=== PATIENT | female | born 1990 | race Caucasian/White ===

== ENCOUNTER 2016-12-07 10:46 | Emergency (ER) | payer OTHER ==
[~2016-12-07] VITALS: Ht 160 cm; Wt 44.5 kg
[~2016-12-07 10:46] MED LIST: CEPH-264 PO; CEPH500C PO; CYCL10TA2 PO; HYDR-971 PO; IBUP-1027 PO; IBUP-1060 PO; METR500T4 PO; NAPR250T2 PO; PHEN-318 PO
[2016-12-07 10:57] VITALS: BP 139/95
[2016-12-07] MEDS ORDERED: HYDR-971 PO (11:54)
[2016-12-07] MEDS ORDERED: CLIN-44 PO (11:54)
--- NOTE | 2016-12-07 11:55 | PHYS DOC ---
Past Medical History Past Medical History: No Pertinent History, Anxiety Past Surgical History: Tonsillectomy Additional Information: LESS THAN 1/2 PACK PER DAY Alcohol Use: None Drug Use: None Adult General Chief Complaint Chief Complaint: DENTAL PROBLEM HPI HPI Patient is a 25 year old female presents emergency department stating that she has having right upper dental pain and discomfort for the last 4 days. She states that she is also been having a nausea feeling. She denies fever, chills. Patient denies any foul taste in the mouth from the dental pain. Patient has been using Orajel and Tylenol [id number] without relief. Patient states she is going to try to follow up at the dental school although she does not have a dentist. Review of Systems Review of Systems Constitutional: Denies fever or chills [] Eyes: Denies change in visual acuity, redness, or eye pain [] HENT: Denies nasal congestion or sore throat. C/o dental pain Respiratory: Denies cough or shortness of breath [] Cardiovascular: No additional information not addressed in HPI [] GI: Denies abdominal pain, vomiting, bloody stools or diarrhea. C/o nausea : Denies dysuria or hematuria [] Musculoskeletal: Denies back pain or joint pain [] Integument: Denies rash or skin lesions [] Neurologic: Denies headache, focal weakness or sensory changes [] Allergies Allergies Allergies Coded Allergies Type Severity Reaction Last Updated Verified Penicillins Allergy Intermediate 11/07/16 Yes amoxicillin Allergy Intermediate 06/07/15 Yes venom-honey bee Allergy Intermediate Shortness of Air 12/11/15 Yes Physical Exam Physical Exam Constitutional: Well developed, well nourished, no acute distress, non-toxic appearance. [] HENT: Normocephalic, atraumatic, bilateral external ears normal, oropharynx moist, no oral exudates, nose normal. Bilateral tympanic membranes appear to be normal. Throat with no erythematous or drainage or discharge. Patient was noted to have erythematous over the #3 through 5 tooth. No drainage or discharge noted. Eyes: PERRLA, EOMI, conjunctiva normal, no discharge. [] Neck: Normal range of motion, no tenderness, supple, no stridor. [] Cardiovascular:Heart rate regular rhythm, no murmur [] Lungs & Thorax: Bilateral breath sounds clear to auscultation [] Skin: Warm, dry, no erythema, no rash. [] Back: No tenderness, Extremities: No tenderness, no cyanosis, no clubbing, ROM intact, no edema. [] Neurologic: Alert and oriented X 3, normal motor function, normal sensory function, no focal deficits noted. [] Psychologic: Affect normal, judgement normal, mood normal. [] Current Patient Data Vital Signs Vital Signs Date Time Temp Pulse Resp B/P Pulse Ox O2 Delivery O2 Flow Rate FiO2 12/07/16 10:57 98.2 95 18 99 Room Air 98.2 EKG EKG [] Radiology/Procedures Radiology/Procedures [] Course & Med Decision Making Course & Med Decision Making Pertinent Labs and Imaging studies reviewed. (See chart for details) Patient will be placed on clindamycin and will be provided hydrocodone. Also recommended ibuprofen every 8 hours 800 mg with food. Patient was also instructed to stop taking the medication if it should develop upset stomach. She was also instructed hydrocodone will cause drowsiness do not take any be alert and oriented. Patient agrees with discharge instructions, treatment regimens and follow-up recommendations. Signs and symptoms to return back to emergency department as been provided.\ Dragon Disclaimer Dragon Disclaimer This electronic medical record was generated, in whole or in part, using a voice recognition dictation system. Departure Departure Impression: Primary Impression: Pain, dental Additional Impression: Dental abscess Disposition: 01 HOME, SELF-CARE Condition: STABLE Referrals: NO PCP (PCP) Patient Instructions: Dental Abscess, Dental Pain, [id number] Additional Instructions: Activity as tolerated. Ibuprofen 800 mg every 8 hours. Hydrocodone will cause drowsiness do not take any be alert and oriented. Medications as prescribed. Follow-up with a dentist in the next 7-10 days. Return back to emergency prior signs and symptoms of become worse. Scripts Hydrocodone/Apap 5-325 ([place] 5-325 Tablet)1 Each Tablet1 Tab PO PRN Q6HRS PRN PAIN #6 TAB Prov:WILLY HAYES NP 12/07/16 Clindamycin Hcl 150 Mg Capsule3 Cap PO QID 10 Days Prov:WILLY HAYES NP 12/07/16 Problem Qualifiers WILLY HAYES NP Dec 07, 2016 11:55
== END 2016-12-07 12:01 | disposition home or self-care (01) ==
LOC: ER 10:46
DX: K04.7 Periapical abscess without sinus (principal); F17.200 Nicotine dependence, unspecified, uncomplicated; Z88.0 Allergy status to penicillin; Z88.1 Allergy status to other antibiotic agents; Z91.030 Bee allergy status
CPT/HCPCS: 99283

== ENCOUNTER 2017-02-11 19:57 | Emergency (ER) | payer OTHER ==
[~2017-02-11 19:57] MED LIST changes: +CLIN-44 PO
[2017-02-11] MEDS ORDERED: FENTANYL PF 100 MCG/2 ML VIAL. IV ONE (20:30)
[2017-02-11] MEDS ORDERED: OXYCODONE/APAP 5/325 TABLET. PO ONE (21:15)
--- NOTE | 2017-02-11 21:37 | PHYS DOC ---
Past Medical History Past Medical History: Anxiety Past Surgical History: Tonsillectomy Alcohol Use: None Drug Use: None Adult General Chief Complaint Chief Complaint: SHOULDER INJURY HPI HPI Patient is a 26 year old female who presents s/p fall. Patient reports that she has sciatic pain that caused her legs to give out as she was walking down some steps; she then fell, falling down several steps and landing on her R shoulder and R elbow. Did not hit head, no LOC. Patient presents now with c/o pain radiating from her R neck down her RUE. She says her RUE is numb. She took half a hydrocodone and an aleve prior to coming to ED. No numbness or weakness in LUE or either lower extremity. Review of Systems Review of Systems Constitutional: Denies fever or chills Eyes: Denies change in visual acuity or eye pain HENT: Denies nasal congestion or sore throat Respiratory: Denies cough or shortness of breath Cardiovascular: Denies chest pain GI: Denies abdominal pain, nausea, vomiting, bloody stools or diarrhea : Denies dysuria or hematuria Musculoskeletal: R neck pain, RUE pain Integument: Denies rash or skin lesions Neurologic: Denies headache, focal weakness Current Medications Current Medications Current Medications Medications (Trade) Dose Ordered Sig/Randi Start Time Stop Time Status Last Admin Dose Admin Fentanyl Citrate (Fentanyl 2ml Vial) 50 mcg 1X ONCE 02/11/17 20:30 02/11/17 20:37 DC 02/11/17 20:53 50 MCG Oxycodone/ Acetaminophen (Percocet 5/325) 2 tab 1X ONCE 02/11/17 21:15 02/11/17 21:16 DC 02/11/17 21:16 2 TAB Allergies Allergies Allergies Coded Allergies Type Severity Reaction Last Updated Verified Penicillins Allergy Intermediate 11/07/16 Yes amoxicillin Allergy Intermediate 06/07/15 Yes venom-honey bee Allergy Intermediate Shortness of Air 12/11/15 Yes Physical Exam Physical Exam Constitutional: Well developed, well nourished, non-toxic appearance HENT: Normocephalic, atraumatic, bilateral external ears normal Eyes: EOMI, conjunctiva normal, no discharge Neck: No stridor; posterior neck generally TTP, no stepoff or deformity noted Cardiovascular: Heart rate normal, regular rhythm, no murmur Lungs & Thorax: Bilateral breath sounds clear to auscultation Abdomen: Bowel sounds normal, soft, non-distended, no TTP Skin: Warm, dry, no erythema, no rash Back: No midline tenderness, no stepoff or deformity Extremities: RUE visually unremarkable compared to LUE, no bruising or other skin lesion noted; general significant TTP over any part of RUE, from shoulder to wrist; patient reports RUE numb to light touch; motor function appears intact but limited by pain; 2+ radial pulse, brisk cap refill in fingers Neurologic: Alert and oriented X 3, no gross deficits noted Current Patient Data Vital Signs Vital Signs Date Time Temp Pulse Resp B/P Pulse Ox O2 Delivery O2 Flow Rate FiO2 02/11/17 22:00 89 17 122/74 100 02/11/17 21:16 Room Air 02/11/17 20:01 98.1 98.1 Lab Values Laboratory Tests Test 02/11/17 19:48 POC Urine HCG, Qualitative Hcg negative (Negative) EKG EKG [] Radiology/Procedures Radiology/Procedures X-ray R shoulder (my read): No acute abnormality X-ray R elbow (my read): No acute abnormality X-ray R wrist (my read): No acute abnormality CT C-spine: IMPRESSION Negative for fracture or dislocation in the cervical spine. Course & Med Decision Making Course & Med Decision Making Pertinent Labs and Imaging studies reviewed. (See chart for details) Patient is 26 year old female who presents s/p mechanical fall. No obvious significant injury on exam, although question the possibility of rotator cuff injury or pinched nerve. Will obtain x-rays of RUE as well as CT c-spine. Pain meds ordered for pain relief. Imaging results as above, no serious injury appreciated. Discussed results with patient, who is more comfortable at this time. Will place RUE in sling. Will discharge with rx for short course of pain meds, NSAID, muscle relaxant, instructions to follow up with ortho if persistent difficulty moving R arm. Given return precautions. Dragon Disclaimer Dragon Disclaimer This electronic medical record was generated, in whole or in part, using a voice recognition dictation system. Departure Departure Impression: Primary Impression: Fall Additional Impression: Musculoskeletal pain of right upper extremity Disposition: HOME, SELF-CARE Condition: IMPROVED Referrals: NO PCP (PCP) THEE MCDERMOTT MD Patient Instructions: Fall Prevention and Home Safety Additional Instructions: Thank you for allowing us to provide care today in the Emergency Department. Take the provided medication as directed. Use care when taking the pain medication or muscle relaxant as they may make you drowsy. Schedule a follow up appointment with an orthopedist using the provided contact information if you continue to have problems moving your shoulder after a couple days. Return promptly to the Emergency Department if you develop any new or concerning symptoms. Scripts Cyclobenzaprine Hcl 10 Mg [id number] Mg PO TID PRN MUSCLE SPASMS #15 TAB Prov:PERRI LINCOLN MD 02/11/17 Naproxen 375 Mg [id number] Mg PO BID PRN PAIN #20 Prov:PERRI LINCOLN MD 02/11/17 Hydrocodone/Apap 5-325 ([place] 5-325 Tablet)1 Each Tablet1 Tab PO PRN Q6HRS PRN PAIN #8 TAB Prov:PERRI LINCOLN MD 02/11/17 Problem Qualifiers PERRI LINCOLN MD Feb 11, 2017 21:37
--- NOTE | 2017-02-11 21:56 | RAD ---
PROCEDURE CT cervical spine without contrast. HISTORY Neck pain after fall. TECHNIQUE Axial images and coronal and sagittal re-formatted images are provided. One or more of the following individualized dose reduction techniques were utilized for this exam: 1. Automated exposure control. 2. Adjustment of the mA and/or kV according to patient's size. 3. Use of iterative reconstruction technique. COMPARISON None. FINDINGS There is no fracture or dislocation. Prevertebral soft tissues are within normal limits. Craniovertebral junction is unremarkable. There is no definite canal or foraminal compromise. Lung apices are clear. IMPRESSION Negative for fracture or dislocation in the cervical spine. Electronically signed by: Jovany Dover MD (Feb 11, 2017 21:54:53)
[2017-02-11 22:00] VITALS: BP 122/74
[2017-02-11] MEDS ORDERED: CYCL10TA2 PO (22:17)
[2017-02-11] MEDS ORDERED: HYDR-971 PO (22:17)
[2017-02-11] MEDS ORDERED: NAPR375T3 PO (22:17)
--- NOTE | 2017-02-12 07:40 | RAD ---
Indication fall, pain. AP oblique and lateral views of the right wrist were obtained. No bony abnormality is seen
--- NOTE | 2017-02-12 07:42 | RAD ---
Indication fall, pain. AP oblique and lateral images of the right elbow were obtained. All of the images obtained are compromised. Positioning of the elbow is not optimal. A definite acute finding is not seen on the views submitted. IMPRESSION: Limited study. No definite acute bony finding seen
--- NOTE | 2017-02-12 07:51 | RAD ---
Indication fall, pain. AP and Y views of the right shoulder were obtained. No bony abnormality is seen
== END 2017-02-11 22:42 | disposition home or self-care (01) ==
LOC: ER 19:57
DX: M79.604 Pain in right leg (principal); M54.2 Cervicalgia; M79.1 Myalgia; F41.9 Anxiety disorder, unspecified; Z88.0 Allergy status to penicillin; Z91.030 Bee allergy status; Z88.1 Allergy status to other antibiotic agents; W10.9XXA Fall (on) (from) unspecified stairs and steps, initial encounter; Y93.89 Activity, other specified; Y92.89 Other specified places as the place of occurrence of the external cause; Y99.8 Other external cause status
CPT/HCPCS: 72125; 73030; 73080; 73110; 81025; 96374; 99284; J3010

== ENCOUNTER 2017-08-03 11:12 | Emergency (ER) | payer OTHER ==
[~2017-08-03] VITALS: Ht 160 cm; Wt 59.0 kg
[~2017-08-03 11:12] MED LIST changes: -CLIN-44 PO; +CLIN150C14 PO; -METR500T4 PO; +METR500T8 PO; +NAPR-695 PO; -NAPR250T2 PO; +NAPR250T6 PO
[2017-08-03 11:35] VITALS: BP 117/57
[2017-08-03] MEDS ORDERED: lidoderm patch 5% TOP (12:24)
[2017-08-03] MEDS ORDERED: LIDOCAINE (700MG/PATCH) PATCH. TD ONE (12:30)
--- NOTE | 2017-08-03 12:32 | PHYS DOC ---
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 She reports that she has pain in her chest when she coughs or takes a deep breath. She's not attempted any symptom controlling medication, denies fevers. Reports runny nose. After coughing she developed some right lower back pain. She denies dysuria or increased urinary frequency. She is 7 months , she denies any abdominal pain, vaginal bleeding or discharge. Nose sensory change, no bowel or bladder incontinence or retention .Patient reports she sees Dr. Keith Review of Systems Review of Systems Constitutional: Denies fever or chills [] Eyes: Denies change in visual acuity, redness, or eye pain [] HENT: Denies nasal congestion or sore throat [] Respiratory: Denies shortness of breath [] Cardiovascular: per hpi GI: Denies abdominal pain, nausea, vomiting, bloody stools or diarrhea [] : Denies dysuria or hematuria [] Musculoskeletal: Denies joint pain [] Integument: Denies rash or skin lesions [] Neurologic: Denies headache, focal weakness or sensory changes [] Current Medications Current Medications Current Medications Medications (Trade) Dose Ordered Sig/Randi Start Time Stop Time Status Last Admin Dose Admin Lidocaine (Lidoderm) 1 patch 1X ONCE 08/03/17 12:30 08/03/17 12:31 DC 08/03/17 12:39 1 PATCH Allergies Allergies Allergies Coded Allergies Type Severity Reaction Last Updated Verified Penicillins Allergy Intermediate 11/07/16 Yes amoxicillin Allergy Intermediate 06/07/15 Yes venom-honey bee Allergy Intermediate Shortness of Air 12/11/15 Yes Physical Exam Physical Exam Constitutional: Well developed, well nourished, no acute distress, appears to not feel well HENT: Normocephalic, atraumatic, bilateral external ears normal, oropharynx moist, no oral exudates, nose normal. [] Eyes: PERRLA, EOMI, conjunctiva normal, no discharge. [] Neck: Normal range of motion, no tenderness, supple, no stridor. [] Cardiovascular:Heart rate regular at 100 with regular rhythm, no murmur [] Lungs & Thorax: Bilateral breath sounds clear to auscultation, good air movement, no wheeze or crackles Abdomen: Bowel sounds normal, soft, no tenderness, no masses, no pulsatile masses, gravid above umbilicus Skin: Warm, dry, no erythema, no rash. [] Back: No midline ttp, no stepoffs, TTP along R flank with palpation and pain with twisting Extremities: No tenderness, no cyanosis, no clubbing, ROM intact, no edema. [] Neurologic: Alert and oriented X 3, normal motor function, normal sensory function, no focal deficits noted. [] Psychologic: Affect normal, judgement normal, mood normal. [] Current Patient Data Vital Signs Vital Signs Date Time Temp Pulse Resp B/P (MAP) Pulse Ox O2 Delivery O2 Flow Rate FiO2 08/03/17 11:35 98.2 94 18 117/57 (77) 99 Room Air 98.2 EKG EKG [] Radiology/Procedures Radiology/Procedures [] Course & Med Decision Making Course & Med Decision Making Pertinent Labs and Imaging studies reviewed. (See chart for details) Patient satting 100% on room air, she has good air movement on exam, she has no comp medications with the . No dysuria or signs of UTI. Her back pain seems to be related to her coughing. Recommended that the patient take Tylenol for pain, honey for the cough, Lidoderm patch was ordered for her back as well as prescription given. Patient was given strict return cautions and instructed to follow-up with primary care physician. She was agreeable to the plan. Dragon Disclaimer Dragon Disclaimer This electronic medical record was generated, in whole or in part, using a voice recognition dictation system. Departure Departure Impression: Primary Impression: Upper respiratory infection Disposition: 01 HOME, SELF-CARE Condition: STABLE Referrals: RAE KEITH Jr, MD Please follow up with her primary care physician to ensure your symptoms are well controlled. You may take Tylenol for your pain, honey for your cough. Return if you have worsening symptoms. Patient Instructions: Back Pain in , Upper Respiratory Infection, Adult Scripts [lidoderm patch 5%] No Conflict Check 1 PATCH TOP PRN Q12HR Y for PAIN, #5 PATCH apply to affected area for 12 hours, then remove for 12 hours. Prov: MISSAEL VARELA MD 08/03/17 MISSAEL VARELA MD Aug 03, 2017 12:32
== END 2017-08-03 12:41 | disposition home or self-care (01) ==
LOC: ER 11:12
DX: J06.9 Acute upper respiratory infection, unspecified (principal); Z88.0 Allergy status to penicillin; Z88.1 Allergy status to other antibiotic agents; Z91.030 Bee allergy status; Z90.89 Acquired absence of other organs
CPT/HCPCS: 99282

== ENCOUNTER 2017-08-17 14:35 | Observation (INO) | payer OTHER ==
[~2017-08-17 14:35] MED LIST changes: +lidoderm patch 5% TOP
[2017-08-17 15:39] LABS: BILIRUBIN,URINE NEGATIVE (NEG); GLUCOSE,URINE NEGATIVE (NEG); NITRITE,URINE NEGATIVE (NEG); PH,URINE 7.5; PROTEIN,URINE NEGATIVE (NEG-TRACE); UROBILINOGEN,URINE 0.2 mg/dL (0.2 mg/dL)
[2017-08-17 15:42] LABS: BARBITURATES NEG (NEG); BENZODIAZEPINES NEG (NEG); CANNABINOIDS POS (NEG); COCAINE NEG (NEG); METHADONE NEG (NEG); OPIATES NEG (NEG); PHENCYCLIDINE NEG (NEG)
== END 2017-08-17 16:05 | disposition home or self-care (01) ==
LOC: 3 SO LND 14:35
PROVIDERS: ADMIT Obstetrics & Gynecology; ATTEND Obstetrics & Gynecology
DX: O36.8130 Decreased fetal movements, third trimester, not applicable or unspecified (principal); O47.03 False labor before 37 completed weeks of gestation, third trimester; Z3A.33 33 weeks gestation of pregnancy
CPT/HCPCS: 80307; 81003; G0378; G0379; 59025; G0479

== ENCOUNTER 2017-08-23 22:22 | Observation (INO) | payer OTHER ==
[2017-08-23 23:37] LABS: BILIRUBIN,URINE NEGATIVE (NEG); GLUCOSE,URINE NEGATIVE (NEG); NITRITE,URINE NEGATIVE (NEG); PROTEIN,URINE NEGATIVE (NEG-TRACE); UROBILINOGEN,URINE 0.2 mg/dL (0.2 mg/dL)
[2017-08-23 23:43] LABS: BACTERIA,URINE MANY /HPF (0-FEW); RBC,URINE 0 /HPF (0-2)
[2017-08-23 23:44] LABS: SQUAMOUS EPITHELIAL CELL,UR MOD /LPF
[2017-08-23 23:45] LABS: BARBITURATES NEG (NEG); BENZODIAZEPINES NEG (NEG); CANNABINOIDS POS (NEG); COCAINE NEG (NEG); METHADONE NEG (NEG); OPIATES NEG (NEG); PHENCYCLIDINE NEG (NEG)
== END 2017-08-24 00:37 | disposition home or self-care (01) ==
LOC: 3 SO LND 22:22
PROVIDERS: ADMIT Obstetrics & Gynecology; ATTEND Obstetrics & Gynecology
DX: O26.893 Other specified pregnancy related conditions, third trimester (principal); M54.5 Low back pain; R10.9 Unspecified abdominal pain; Z3A.34 34 weeks gestation of pregnancy
CPT/HCPCS: 80307; 81001; 87086; G0378; G0379; G0479

== ENCOUNTER 2017-09-17 13:04 | Observation (INO) | payer OTHER ==
[2017-09-17] MEDS ORDERED: IV RINGERS,LACTATED 1000ML 1,000 ML IV SCH (13:38)
[2017-09-17 13:50] LABS: BILIRUBIN,URINE NEGATIVE (NEG); GLUCOSE,URINE NEGATIVE (NEG); NITRITE,URINE NEGATIVE (NEG); PH,URINE 7.5; PROTEIN,URINE NEGATIVE (NEG-TRACE); UROBILINOGEN,URINE 0.2 mg/dL (0.2 mg/dL)
[2017-09-17 13:58] LABS: BARBITURATES NEG (NEG); BENZODIAZEPINES NEG (NEG); CANNABINOIDS NEG (NEG); COCAINE NEG (NEG); METHADONE NEG (NEG); OPIATES NEG (NEG); PHENCYCLIDINE NEG (NEG)
[2017-09-17 13:59] LABS: BACTERIA,URINE MODERATE /HPF (0-FEW); RBC,URINE OCC /HPF (0-2); SQUAMOUS EPITHELIAL CELL,UR MANY /LPF
== END 2017-09-17 16:19 | disposition home or self-care (01) ==
LOC: 3 SO LND 13:04
PROVIDERS: ADMIT Obstetrics & Gynecology; ATTEND Obstetrics & Gynecology
DX: O62.9 Abnormality of forces of labor, unspecified (principal); Z3A.38 38 weeks gestation of pregnancy
CPT/HCPCS: 80307; 81001; 87086; G0378; G0379; G0479

== ENCOUNTER 2017-12-30 10:46 | Emergency (ER) | payer OTHER ==
[2017-12-30 11:01] LABS: URINE HCG POC HCG NEGATIVE (Negative)
[2017-12-30 11:49] LABS: ADD MAN DIFF? NO
[2017-12-30] MEDS: MORPHINE SULFATE 2 MG/ML DISP.SYRIN. IV/SQ ×2 (11:52)
[2017-12-30] MEDS: IV NORMAL SALINE 1000ML BAG 1,000 ML IV ×2 (11:52)
[2017-12-30 11:53] LABS: BASO # 0.1 x10^3/uL (0.0-0.2); BASO % 1 % (0-3); EOS # 0.1 x10^3/uL (0.0-0.7); EOS % 1 % (0-3); HEMATOCRIT 37.8 % (36.0-47.0); HEMOGLOBIN 12.5 g/dL (12.0-15.5); LYMPH % 8 % (24-48); MEAN CORPUSCULAR HEMOGLOBIN 27 pg (25-35); MEAN CORPUSCULAR HGB CONC 33 g/dL (31-37); MEAN CORPUSCULAR VOLUME 80 fL (79-100); MONO # 1.3 x10^3/uL (0.0-1.1); MONO % 11 % (0-9); NEUT # 9.5 x10^3uL (1.8-7.7); NEUT % 80 % (31-73); PLATELET COUNT 346 x10^3/uL (140-400); RED BLOOD COUNT 4.72 x10^6/uL (3.50-5.40); WHITE BLOOD COUNT 11.9 x10^3/uL (4.0-11.0)
[2017-12-30 11:58] LABS: BILIRUBIN,URINE NEGATIVE (NEG); CLARITY,URINE CLOUDY; COLOR,URINE YELLOW; GLUCOSE,URINE NEGATIVE (NEG); NITRITE,URINE POSITIVE (NEG); PH,URINE 7.5; PROTEIN,URINE 100 mg/dL (NEG-TRACE)
[2017-12-30 12:00] LABS: BACTERIA,URINE MANY /HPF (0-FEW); RBC,URINE OCC /HPF (0-2); SQUAMOUS EPITHELIAL CELL,UR MANY /LPF; WBC,URINE >40 /HPF (0-4)
[2017-12-30 12:07] LABS: ANION GAP 7 (6-14); BLOOD UREA NITROGEN 10 mg/dL (7-20); CALCIUM 8.5 mg/dL (8.5-10.1); CARBON DIOXIDE 30 mmol/L (21-32); CHLORIDE 99 mmol/L (98-107); CREATININE 0.8 mg/dL (0.6-1.0); GFR 86.7; GLUCOSE 112 mg/dL (70-99); POTASSIUM 3.8 mmol/L (3.5-5.1); SODIUM 136 mmol/L (136-145)
[2017-12-30 12:12] LABS: ALBUMIN 3.4 g/dL (3.4-5.0); ALK PHOS 71 U/L (46-116); ALT (SGPT) 23 U/L (14-59); AST (SGOT) 21 U/L (15-37); LIPASE 110 U/L (73-393); TOTAL BILIRUBIN 0.5 mg/dL (0.2-1.0)
[2017-12-30 12:20] LABS: DIRECT BILIRUBIN 0.1 mg/dL (0.0-0.2)
[2017-12-30] MEDS: IOHEXOL 240 MG/ML 50ML VIAL. PO ×2 (12:45)
[2017-12-30] MEDS: IOHEXOL 300 MG/ML 100ML VIAL. IV ×2 (12:45)
[2017-12-30] MEDS ORDERED: CONTRAST GIVEN MC ×2 (12:45)
[2017-12-30] MEDS ORDERED: IOHEXOL 300 MG/ML 100ML VIAL. IV ×2 (13:30)
[2017-12-30] MEDS ORDERED: IOHEXOL 240 MG/ML 50ML VIAL. PO ×2 (13:30)
== END 2017-12-30 14:50 | disposition home or self-care (01) ==
LOC: ER 10:46
DX: N12 Tubulo-interstitial nephritis, not specified as acute or chronic (principal); F41.9 Anxiety disorder, unspecified; F12.10 Cannabis abuse, uncomplicated; F15.10 Other stimulant abuse, uncomplicated; F32.9 Major depressive disorder, single episode, unspecified; Z88.0 Allergy status to penicillin; Z88.8 Allergy status to other drugs, medicaments and biological substances; Z88.1 Allergy status to other antibiotic agents; Z91.030 Bee allergy status
CPT/HCPCS: 36415; 74177; 80048; 80076; 81001; 81025; 83690; 85025; 87086; 87186; 96365; 96375; 99285-25; J1956; J2270; J7030; Q9966; Q9967

== ENCOUNTER 2019-03-23 11:26 | Emergency (ER) | payer OTHER ==
[~2019-03-23] VITALS: Ht 160 cm; Wt 54.4 kg
[~2019-03-23 11:26] MED LIST changes: +HYDR-3164 PO; -HYDR-971 PO; +LEVO500T59 PO; +METR-34 PO; -METR500T8 PO; +PROM25TA10 PO
[2019-03-23 11:47] VITALS: BP 119/62
[2019-03-23 12:47] LABS: BILIRUBIN,URINE NEGATIVE (NEG); CLARITY,URINE CLEAR; COLOR,URINE YELLOW; NITRITE,URINE NEGATIVE (NEG); PROTEIN,URINE NEGATIVE (NEG-TRACE); UROBILINOGEN,URINE 0.2 mg/dL (0.2 mg/dL)
[2019-03-23 12:55] LABS: BACTERIA,URINE 0 /HPF (0-FEW); RBC,URINE 0 /HPF (0-2); SQUAMOUS EPITHELIAL CELL,UR FEW /LPF; WBC,URINE 0 /HPF (0-4)
--- NOTE | 2019-03-23 13:54 | PHYS DOC ---
Past Medical History Past Medical History: Anxiety, Depression Past Surgical History: Tonsillectomy Additional Information: non smoker. Alcohol Use: None Drug Use: None Adult General Chief Complaint Chief Complaint: PAIN ON URINATION HPI HPI Patient is a 28-year-old female that presents with right flank pain since Thursday accompanied by dysuria. Patient is 17 weeks . Has been having some associated symptoms of nausea on Thursday. Denies any pain at this time. States has been feeling the baby move. Review of Systems Review of Systems Constitutional: Denies fever. Reports sometimes feeling hot/cold. [] Eyes: Denies change in visual acuity, redness, or eye pain [] HENT: Denies nasal congestion or sore throat [] Respiratory: Denies cough or shortness of breath [] Cardiovascular: Denies CP or syncope. GI: Denies abdominal pain. Reports Nausea and vomiting on Thursday (1 episode). : Reports dysuria. Denies Hematuria. Denies Vaginal bleeding. Musculoskeletal: Report R flank pain. Integument: Denies rash or skin lesions [] Neurologic: Denies headache, focal weakness or sensory changes [] Endocrine: Denies polyuria or polydipsia [] Complete systems were reviewed and found to be within normal limits, except as documented in this note. Allergies Allergies Allergies Coded Allergies Type Severity Reaction Last Updated Verified Penicillins Allergy Intermediate 11/07/16 Yes amoxicillin Allergy Intermediate 06/07/15 Yes ondansetron Allergy Intermediate Rash 09/22/17 Yes venom-honey bee Allergy Intermediate Shortness of Air 12/11/15 Yes Physical Exam Physical Exam Constitutional: No acute distress, non-toxic appearance. [] HENT: Normocephalic, atraumatic, oropharynx moist, no oral exudates, nose normal. [] Eyes: PERRLA, conjunctiva normal, no discharge. [] Neck: Normal range of motion, no tenderness, supple, no stridor. [] Cardiovascular:Heart rate regular rhythm, no murmur [] Lungs & Thorax: Bilateral breath sounds clear to auscultation [] Abdomen: Distended, R Flank tenderness. Skin: Warm, dry, no erythema, no rash. [] Back: R CVA tenderness. [] Extremities: No tenderness, no cyanosis, no clubbing, ROM intact, no edema. [] Neurologic: Alert and oriented X 3, normal motor function, normal sensory function, no focal deficits noted. [] Psychologic: Affect normal, judgement normal, mood normal. [] Current Patient Data Vital Signs Vital Signs Date Time Temp Pulse Resp B/P (MAP) Pulse Ox O2 Delivery O2 Flow Rate FiO2 03/23/19 11:47 98.7 90 14 119/62 (81) 100 Room Air 98.7 Lab Values Laboratory Tests Test 03/23/19 11:47 Urine Collection Type Unknown Urine Color Yellow Urine Clarity Clear Urine pH 7.0 Urine Specific [place] <=1.005 Urine Protein Negative mg/dL (NEG-TRACE) Urine Glucose (UA) Negative mg/dL (NEG) Urine Ketones (Stick) Negative mg/dL (NEG) Urine Blood Negative (NEG) Urine Nitrite Negative (NEG) Urine Bilirubin Negative (NEG) Urine Urobilinogen Dipstick 0.2 mg/dL (0.2 mg/dL) Urine Leukocyte Esterase Negative (NEG) Urine RBC 0 /HPF (0-2) Urine WBC 0 /HPF (0-4) Urine Squamous Epithelial Cells Few /LPF Urine Bacteria 0 /HPF (0-FEW) EKG EKG [] Radiology/Procedures Radiology/Procedures Pelvic Exam: External exam shows microabrasion and without rash. No adnexal masses or tenderness noted[] Chaperoned by nursing staff. Course & Med Decision Making Course & Med Decision Making Pertinent Labs and Imaging studies reviewed. (See chart for details) Discussed symptoms with patient. Will obtain urinalysis for evaluation. Patient was offered IV for fluids and declined. Patient is agreeable to plan. Urinalysis is negative. Will perform pelvic exam to evaluate dysuria. Patient was offered STD testing and declined. Patient agreed to plan. Pelvic exam showed a small microabrasion on the R labia. Will discharge home to follow up with [facility]. Patient is agreeable. Dragon Disclaimer Dragon Disclaimer This electronic medical record was generated, in whole or in part, using a voice recognition dictation system. Departure Departure Impression: Primary Impression: Dysuria Disposition: HOME, SELF-CARE Condition: STABLE Referrals: NO PCP (PCP) Patient Instructions: Dysuria-Brief Additional Instructions: Follow up with OB. No UTI seen. Come back to ER if signs and symptoms worsen. KELTON ROTH APRN March 23, 2019 13:54
== END 2019-03-23 14:10 | disposition home or self-care (01) ==
LOC: ER 11:26
DX: O99.89 Other specified diseases and conditions complicating pregnancy, childbirth and the puerperium (principal); R30.0 Dysuria; R14.0 Abdominal distension (gaseous); O21.8 Other vomiting complicating pregnancy; O99.342 Other mental disorders complicating pregnancy, second trimester; F41.9 Anxiety disorder, unspecified; F32.9 Major depressive disorder, single episode, unspecified; Z90.89 Acquired absence of other organs; Z88.0 Allergy status to penicillin; Z88.1 Allergy status to other antibiotic agents; Z88.8 Allergy status to other drugs, medicaments and biological substances; Z91.030 Bee allergy status; Z3A.17 17 weeks gestation of pregnancy
CPT/HCPCS: 81001; 99283

== ENCOUNTER 2019-05-25 09:49 | Inpatient (IN) | payer OTHER ==
[~2019-05-25] VITALS: Ht 160 cm; Wt 53.2 kg
[2019-05-25] MEDS ORDERED: IV RINGERS,LACTATED 1000ML 1,000 ML IV PRN (10:00)
[2019-05-25 10:25] LABS: BILIRUBIN,URINE NEGATIVE (NEG); CLARITY,URINE CLOUDY; COLOR,URINE YELLOW; NITRITE,URINE POSITIVE (NEG); PROTEIN,URINE 100 mg/dL (NEG-TRACE); UROBILINOGEN,URINE 0.2 mg/dL (0.2 mg/dL)
[2019-05-25 10:30] LABS: AMPHETAMINE/METHAMPHETAMINE POS (NEG); BARBITURATES NEG (NEG); BENZODIAZEPINES NEG (NEG); CANNABINOIDS POS (NEG); COCAINE NEG (NEG); METHADONE NEG (NEG); OPIATES NEG (NEG); PHENCYCLIDINE NEG (NEG)
[2019-05-25 10:47] LABS: SQUAMOUS EPITHELIAL CELL,UR MOD /LPF
[2019-05-25 10:49] LABS: BACTERIA,URINE MANY /HPF (0-FEW); WBC,URINE 20-40 /HPF (0-4)
[2019-05-25] MEDS ORDERED: IV RINGERS,LACTATED 1000ML 1,000 ML IV ONE (12:00)
[2019-05-25] MEDS: ACETAMINOPHEN 325 MG TABLET. PO PRN ×2 (12:11→17:58)
[2019-05-25 12:16] LABS: BASO % 0 % (0-3); EOS # 0.1 x10^3/uL (0.0-0.7); EOS % 1 % (0-3); HEMATOCRIT 31.2 % (36.0-47.0); HEMOGLOBIN 10.9 g/dL (12.0-15.5); LYMPH # 1.4 x10^3/uL (1.0-4.8); LYMPH % 9 % (24-48); MEAN CORPUSCULAR HEMOGLOBIN 31 pg (25-35); MEAN CORPUSCULAR HGB CONC 35 g/dL (31-37); MEAN CORPUSCULAR VOLUME 89 fL (79-100); MONO # 0.9 x10^3/uL (0.0-1.1); MONO % 6 % (0-9); NEUT # 12.9 x10^3uL (1.8-7.7); NEUT % 84 % (31-73); PLATELET COUNT 283 x10^3/uL (140-400); RED BLOOD COUNT 3.52 x10^6/uL (3.50-5.40); RED CELL DISTRIBUTION WIDTH 12.8 % (11.5-14.5); WHITE BLOOD COUNT 15.3 x10^3/uL (4.0-11.0)
[2019-05-25] MEDS: cefTRIAXone IV Push 1 GM VIAL. IVP SCH (12:31)
[2019-05-25 13:10] LABS: CALCIUM 8.3 mg/dL (8.5-10.1); CREATININE 0.6 mg/dL (0.6-1.0); GFR 119.9; POTASSIUM 3.7 mmol/L (3.5-5.1)
[2019-05-25 14:50] LABS: % BANDS 5 % (0-9); % EOS 1 % (0-5); % LYMPHS 14 % (24-48); % MONOS 4 % (0-10); % SEGS 76 % (35-66); PLT ESTIMATE ADEQUATE (ADEQUATE)
[2019-05-25 15:00] VITALS: BP 125/58
[2019-05-25] MEDS: IV RINGERS,LACTATED 1000ML 1,000 ML IV SCH ×3 (15:56→23:00)
[2019-05-25 18:30] VITALS: BP 119/73
[2019-05-25] MEDS: METOCLOPRAMIDE HCL 10 MG/2 ML VIAL. IV PRN (19:15)
[2019-05-26] MEDS: ACETAMINOPHEN 325 MG TABLET. PO PRN (02:09)
[2019-05-26] MEDS: IV RINGERS,LACTATED 1000ML 1,000 ML IV SCH ×2 (03:33→12:14)
[2019-05-26 04:15] LABS: BASO % 0 % (0-3); EOS # 0.1 x10^3/uL (0.0-0.7); EOS % 1 % (0-3); LYMPH # 1.6 x10^3/uL (1.0-4.8); LYMPH % 13 % (24-48); MEAN CORPUSCULAR HEMOGLOBIN 31 pg (25-35); MEAN CORPUSCULAR HGB CONC 35 g/dL (31-37); MEAN CORPUSCULAR VOLUME 88 fL (79-100); MONO % 8 % (0-9); NEUT % 79 % (31-73); PLATELET COUNT 240 x10^3/uL (140-400); RED BLOOD COUNT 2.94 x10^6/uL (3.50-5.40); RED CELL DISTRIBUTION WIDTH 13.1 % (11.5-14.5); WHITE BLOOD COUNT 12.6 x10^3/uL (4.0-11.0)
[2019-05-26 04:33] LABS: CALCIUM 7.9 mg/dL (8.5-10.1); CREATININE 0.7 mg/dL (0.6-1.0); GFR 100.4; POTASSIUM 3.3 mmol/L (3.5-5.1)
[2019-05-26 07:49] VITALS: BP 89/52
[2019-05-26 10:37] VITALS: BP 96/52
--- NOTE | 2019-05-26 11:19 | PDOC1 ---
OB - History Hx of Present Care: Limited Care Ultrasounds: Normal mid trimester US Obstetrical Complications: None Medical Complications: Other (pyelonephritis) Past Family/Social History * Past Medical, Surgical, Family and Obstetric Histories reviewed from chart. Blood Type: Unknown Rubella: Unknown RPR/VDRL: Unknown GBS Status: Unknown HBsAG: Unknown OB - Chief Complaint & HPI Date of Admission: Date of Admission: May 25, 2019 at 09:49 Chief Complaint/History : 4 Para: 3 EGA: 28 Reason for admission: other (back pain) Admission Nurse Assessment Rev: Yes OB - Admission Exam Physical Exam Vitals: VS - Last 72 Hours, by Label Date Time Temp Pulse Resp B/P (MAP) Pulse Ox O2 Delivery O2 Flow Rate FiO2 05/26/19 10:37 98.4 83 16 96/52 (67) 97 Room Air 98.4 05/26/19 07:49 98.5 83 16 89/52 (64) Room Air 98.5 05/25/19 18:30 98.3 83 16 119/73 (88) Room Air 98.3 05/25/19 15:00 98.3 73 16 125/58 (80) Room Air 98.3 05/25/19 14:55 Room Air HEENT: Other (dry mucous membranes) Heart: Other (tachycardia on admission and now normal.) Lungs: Clear Abdomen: Gravid, Non tender, Soft, Tender (Right CVA tenderness) Effacement: 50% Membranes: Intact Amniotic Fluid: Clear Heart Rate: Normal Accelerations: Accelerations Present Decelerations: No decelerations Contractions on Admission: None Text A: 28 wks IUP Right Pyelonephritis P: Admit for IV hydration and IV abx. Continue IV abx until afebrile and pain resolved. RAE CROOK Jr, MD May 26, 2019 11:19
[2019-05-26] MEDS: cefTRIAXone IV Push 1 GM VIAL. IVP SCH (11:40)
[2019-05-26] MEDS: METOCLOPRAMIDE HCL 10 MG/2 ML VIAL. IV PRN (11:50)
[2019-05-26 14:55] VITALS: BP 114/61
--- NOTE | 2019-05-26 16:36 | NUR ---
dr keith notified at 1626 that pt would like to leave. He stated that her treatment is not done and she would need to sign out ama. Talked with pt about uti not gone yet and dr Keith does not want her to go yet and she would have to go ama. Went over possible delivery or problems with baby including due to tx not completed. Pt signed ama papers. Instructed pt to call her regular doctor in am and let him know about her admission here. States she will. IV dc'd with 525ml infused. Dismissed amb with boyfriend.
== END 2019-05-26 16:45 | disposition home or self-care (01) | DRG 832 ==
LOC: 3 SO LND 09:49 → OBSVTOIN 13:06 → UNDODISOB 05-26 16:45
PROVIDERS: ADMIT Obstetrics & Gynecology; ATTEND Obstetrics & Gynecology
DX: O23.03 Infections of kidney in pregnancy, third trimester (principal); N12 Tubulo-interstitial nephritis, not specified as acute or chronic; Z3A.28 28 weeks gestation of pregnancy
CPT/HCPCS: 36415; 80048; 80307; 81001; 85007; 85025; 87086; G0378; G0379; J0696; J2765; J7120